=== PATIENT | female | born 1950 ===

== ENCOUNTER 2019-12-16 07:23 | Inpatient (IN) ==
[~2019-12-16 07:23] MED LIST: Buffered Lidocaine 1% SYRIN 1 ml INTRADERM ONE; Lactated Ringers 1000 ml BAG 1,000 ML IV SCH
[2019-12-16] MEDS ORDERED: Clindamycin 900 MG/D5W BAG 900 MG/50 ML BAG IVPB ONE (07:41)
[2019-12-16] MEDS ORDERED: fentaNYL 250 mcg/5 ml 50 MCG/ML 5 ml VIAL (250 MCG) ONE (08:56)
[2019-12-16] MEDS ORDERED: Midazolam 2 mg/2 ml VIAL 1 mg/ml 2 ml VIAL (2 mg) ONE ×2 (08:56→09:52)
[2019-12-16] MEDS ORDERED: fentaNYL 100 mcg/2 ml 50 MCG/ML VIAL ONE (08:57)
[2019-12-16] MEDS ORDERED: ROPIVACAINE 5 MG/ML 30 ML BTL (0.5%) ONE ×2 (09:03→09:17)
[2019-12-16] MEDS ORDERED: Naloxone 0.4 mg VIAL 0.4 mg/ml 1 ml VIAL IV PRN (10:08)
[2019-12-16] MEDS ORDERED: diPHENhydraMINE IV 50 MG/ML 1 ml VIAL (BENADRYL) IV PRN ×2 (10:08→12:18)
[2019-12-16] MEDS ORDERED: HYDROmorphone 1 MG/1 ML SYRINGE IV PRN (10:08)
[2019-12-16] MEDS ORDERED: Ondansetron 4 mg VIAL 2 MG/ML 2 ml VIAL IV PRN ×2 (10:08→12:18)
[2019-12-16] MEDS ORDERED: EPHEDrine (Pressors) 50 MG/ML VIAL ONE (10:29)
[2019-12-16] MEDS ORDERED: diPHENhydraMINE 25 mg TAB PO PRN (12:18)
[2019-12-16] MEDS ORDERED: Ondansetron ODT 4 mg TAB 4 MG TAB PO PRN (12:18)
[2019-12-16] MEDS ORDERED: Magnesium Hydroxide LIQ 30 ML UDC PO PRN (12:18)
[2019-12-16] MEDS ORDERED: Lactulose 30 ml UDC PO PRN (12:18)
[2019-12-16] MEDS ORDERED: oxyCODONE/Acetamin 5/325 mg TAB PO PRN (12:18)
[2019-12-16] MEDS ORDERED: NS 0.9% 1000 ml BAG 1,000 ML IV SCH (14:45)
[2019-12-16] MEDS: oxyCODONE/Acetamin 5/325 mg TAB PO PRN ×2 (16:02→21:15)
[2019-12-16] MEDS: Clindamycin 600 MG/D5W BAG 600 MG/50 ML BAG IV SCH (18:00)
[2019-12-16] MEDS: Magnesium Hydroxide LIQ 30 ML UDC PO SCH (21:15)
[2019-12-17] MEDS: oxyCODONE/Acetamin 5/325 mg TAB PO PRN ×2 (01:19→13:49)
[2019-12-17] MEDS: Clindamycin 600 MG/D5W BAG 600 MG/50 ML BAG IV SCH ×2 (01:22→10:23)
[2019-12-17 05:47] LABS: Hematocrit 28 % (35-47); Hemoglobin 9.6 g/dL (12.0-16.0); Mean Platelet Volume 7.9 fL (7.4-10.4); Platelet Count 271 10^3/uL (150-450)
[2019-12-17 06:05] LABS: BUN/Creatinine Ratio 15.5 (8-20); Calcium 8.6 mg/dL (8.6-10.3); EGFR African American 98.8 (>60); EGFR Non-African American 81.6 (>60)
[2019-12-17] MEDS: Magnesium Hydroxide LIQ 30 ML UDC PO SCH (07:48)
[2019-12-17] MEDS ORDERED: NS 0.9% 500 ml BAG 500 ML IV ONE (07:55)
[2019-12-17] MEDS ORDERED: Vitamin THERAPEUTIC TAB PO SCH (09:00)
[2019-12-17 11:56] VITALS: BP 125/77
== END 2019-12-17 14:40 | disposition home or self-care (01) | DRG 470 ==
LOC: AA 07:23 → SSU 13:18
PROVIDERS: ADMIT Orthopaedic Surgery Adult Reconstructive Orthopaedic Surgery; ATTEND Orthopaedic Surgery Adult Reconstructive Orthopaedic Surgery